=== PATIENT | male | born 1985 | race Caucasian/White ===

== ENCOUNTER 2021-07-03 21:18 | Emergency (ER) | payer SELFPAY ==
[2021-07-03 21:40] VITALS: BP 133/78; PULSE 84; RESP 18; TEMP 37.2; O2SAT 96
--- NOTE | 2021-07-03 21:57 | XRR_ITS ---
PROCEDURE INFORMATION: Exam: XR Chest Exam date and time: 07/03/2021 9:57 PM Age: 36 years old Clinical indication: Cough and fever and shortness of breath TECHNIQUE: Imaging protocol: XR of the chest. Views: 1 view. COMPARISON: No relevant prior studies available. FINDINGS: Lungs: Mild pulmonary vascular congestion interstitial edema. Subtle patchy ground-glass airspace opacities may reflect an infectious process. Pleural spaces: Unremarkable. No pleural effusion. No pneumothorax. Heart/Mediastinum: Cardiomegaly. Bones/joints: Unremarkable. XR/XR chest 1V portable [id number] IMPRESSION: 1. Subtle patchy ground-glass airspace opacities may reflect an infectious process. 2. Cardiomegaly. 3. Mild pulmonary vascular congestion interstitial edema.
[2021-07-03 23:32] LABS: SARS Covid-2 Antigen Negative (Negative)
--- NOTE | 2021-07-03 23:33 | ED_ITS ---
HPI - COVID General: Chief Complaint: COVID symptoms Stated Complaint: fever/fatigued/covid + Time Seen by Provider: 07/03/21 23:26 Source: patient Mode of arrival: ambulatory Limitations: no limitations Triage information: Has fever, cough or shortness of breath . Exposure to COVID + person last 14 days History of Present Illness: HPI Narrative: 36-year-old male who has had a cough congestion fever body aches for 7 days. His brother was recently diagnosed with Covid and is actually admitted to the hospital. He states that he went to get checked as he was pretreated Covid. He denies any worsening proving factors. Denies any vomiting or diarrhea. Patient is resting comfortably here and has a pulse ox of 96% on room air. COVID 19 common symptoms: positive fever(s), chills and non-productive cough; negative headache(s), throat pain, nausea, vomiting or diarrhea COVID 19 other sytmptoms: negative chest pain COVID Results: SARS-CoV-2 Antigen (Rapid) Negative (Negative) 07/03/21 23:07 07/03/21 Review of Systems Const: Reports: fever(s) and chills Eyes: Denies: blurry vision or eye discomfort ENMT: Denies: throat pain or dental pain Card: Denies: chest pain Resp: Reports: non-productive cough GI: Denies: abdominal pain, nausea, vomiting or diarrhea : Denies: dysuria Musc: Denies: neck pain or back pain Skin/Breast: Denies: rash Neuro: Denies: headache(s) Psych: Denies: depression Marco/Lymph: Denies: easy bruising All/Imm: Denies: urticaria Physical Exam Const: COMMON NORMALS: no acute distress, patient oriented x3 and healthy appearing HENMT: COMMON NORMALS: normocephalic and atraumatic HEAD & SCALP: normocephalic and atraumatic Eye: COMMON NORMALS: Equal, round and reactive pupils present and EOMs intact bilaterally PUPIL: Yes Equal, round and reactive pupils present Neck/C-Spine: COMMON NORMALS: full ROM and supple Chest: COMMONS NORMALS: normal inspection of the chest and normal palpation of entire chest wall Resp: COMMON NORMALS: normal respiratory effort, No retractions, No use of accessory muscles and clear to auscultation bilaterally AUSCULTATION: clear to auscultation bilaterally Cardio: COMMON NORMALS: regular rate, regular rhythm and No murmurs present (Cardio) RATE: regular rate RHYTHM: regular rhythm GI: COMMON NORMALS: Normal to inspection, nondistended, normoactive bowel sounds present, Soft to palpation, non-tender and no masses PALPATION: Yes Soft to palpation Extremity: COMMON NORMALS: normal to inspection and full ROM Neuro: COMMON NORMALS: patient oriented x3, moves all extremities and no focal motor deficits Psych: COMMON NORMALS: mental status grossly normal, Normal thought process present and cooperative THOUGHT PROCESS: Normal thought process present Skin: COMMON NORMALS: no rashes or lesions noted and no wounds GENERAL SKIN EXAM: no rashes or lesions noted Course Vital Signs: Vital signs: Vital Signs Temperature 99 F 07/03/21 21:40 Pulse Rate 87 07/03/21 23:35 Respiratory Rate 16 07/03/21 23:35 Blood Pressure 144/90 07/03/21 23:35 Pulse Oximetry 96 07/03/21 23:35 MDM - COVID MDM Narrative: Medical decision making narrative: Patient presents with likely Covid his rapid was negative but will send off a PCR she has had close contact and x-ray has the appearance of Covid. We will start him on a Medrol Dosepak and doxycycline. He is not hypoxic and is well-appearing here. He is to monitor his pulse ox at home and return to the ER if worsening. He understands agrees to plan. Lab Data: Labs: Lab Results 07/03/21 Range/Units 23:07 SARS-CoV-2 Ag (Rap id) Negative (Negative) Imaging Data: CXR: Radiologist's impression: [address] [place] [address] XRay Report Signed Patient: Ria Lomeli Unit #: [id number] : 1985 A cct#:[id number] Age/Sex: 36 / M ADM Date: 07/03/21 Loc: ER Room/Bed: Attending Dr: Ordering Provider/Ordering MD: Marv Sharpe MD Date of Service: 07/03/21 Procedure(s): XR chest 1V portable [id number] Accession Number(s): [id number] Report Number: [id number] PROCEDURE INFORMATION: Exam: XR Chest Exam date and time: 07/03/2021 9:57 PM Age: 36 years old Clinical indication: Cough and fever and shortness of breath TECHNIQUE: Imaging protocol: XR of the chest. Views: 1 view. COMPARISON: No relevant prior studies available. FINDINGS: Lungs: Mild pulmonary vascular congestion interstitial edema. Subtle patchy ground-glass airspace opacities may reflect an infectious process. Pleural spaces: Unremarkable. No pleural effusion. No pneumothorax. Heart/Mediastinum: Cardiomegaly. Bones/joints: Unremarkable. XR/XR chest 1V portable [id number] IMPRESSION: 1. Subtle patchy ground-glass airspace opacities may reflect an infectious process. 2. Cardiomegaly. 3. Mild pulmonary vascular congestion interstitial edema. Dictated By: Bryan Tam MD Signed By: Bryan Tam MD Signed Date/Time: 07/03/212313 DD/ 11 COVID Results: SARS-CoV-2 Antigen (Rapid) Negative (Negative) 07/03/21 23:07 07/03/21 Discharge Plan Discharge Patient Disposition: Home Clinical Impression: Suspected severe acute respiratory syndrome coronavirus 2 (SARS-CoV-2) infection, Suspected 2019-nCoV infection Condition: Stable Prescriptions: New doxycycline hyclate 100 mg tablet 100 mg PO BID 7 Days Qty: 14 RF: 0 Medrol (Tommie) 4 mg tablets,dose pack See Rx Instructions .ROUTE .COMPLEX Qty: 21 RF: 0 Discharge Orders: Discharge ED (Routine); Ordered 07/03/21 Ordered By: Marv Sharpe Discharge Diet: Advance as tolerated Discharge Activity: Resume usual activity Patient Instructions: Viral Syndrome (ED) Coding Level of Care Code ED Organic Chemistry Teacher for Rahul Mcgill
[2021-07-03 23:35] VITALS: BP 144/90; PULSE 87; RESP 16; O2SAT 96
[2021-07-03 23:43] VITALS: BP 140/52; PULSE 78; RESP 16; O2SAT 97
[2021-07-04 15:07] LABS: Coronavirus Test Green County Detected
== END 2021-07-03 23:40 | disposition home or self-care (01) ==
PROVIDERS: Emergency Provider Emergency Medicine
DX: U07.1 COVID-19 (principal)
CPT/HCPCS: 71045; 87426; 87635; 99281

== ENCOUNTER 2021-07-06 12:43 | Emergency (ER) | payer SELFPAY ==
[2021-07-06 12:51] VITALS: BP 155/93; PULSE 95; RESP 18; TEMP 37.3; O2SAT 93; BMI 40.4
--- NOTE | 2021-07-06 13:00 | XRR_ITS ---
PROCEDURE INFORMATION: Exam: XR Chest Exam date and time: 07/06/2021 1:00 PM Age: 36 years old Clinical indication: Cough and dyspnea TECHNIQUE: Imaging protocol: XR of the chest. Views: 1 view. COMPARISON: CR (CHEST, ) 07/03/2021 10:32 PM FINDINGS: Lungs: Patchy opacification in bilateral lungs progressed from prior study representing infiltrates. Pleural spaces: Unremarkable. No pleural effusion. No pneumothorax. Heart/Mediastinum: Unremarkable. No cardiomegaly. Bones/joints: Unremarkable. XR/XR chest 1V portable [id number] IMPRESSION: Patchy opacification in bilateral lungs progressed from prior study representing worsening infiltrates.
--- NOTE | 2021-07-06 13:02 | ECG_ITS ---
[facility] Test Date: 2021-07-06 Pat Name: Ria Lomeli Department: Room: Gender: Male Executive Relations Specialist: : 1985 Requested By: Marley Muñoz Order Number: [id number] Scottie MD: Marga Katz M.D. Measurements Intervals Rio Rate: 102 P: 29 WY: 158 QRS: 20 QRSD: 101 T: 16 QT: 321 QTc: 420 Interpretive Statements SINUS TACHYCARDIA ABNORMAL RHYTHM ECG No previous ECG available for comparison Electronically Signed On 07-08-2021 21:40:47 CDT by Marga Katz M.D. [email or web address]
--- NOTE | 2021-07-06 13:11 | ED_ITS ---
HPI - General Adult General: Chief complaint: Shortness of Breath/Dyspnea Stated complaint: COVID (+): COUGH, SOB Time Seen by Provider: 07/06/21 12:56 History of Present Illness: HPI narrative: CC: Shortness of breath, fever and generalized weakness HPI: This is a [36] yo patient w/ no known PMH for cough, worsening shortness of breath, nonbloody diarrhea, genrealized fatigue at home x 10days now worsening x 3 days. Patient tested positive for covid 10 days ago. Denies chest pain, N/V, diaphoresis, other GI or complaints. Denies any pleuritic chest pain, recent surgery/immobilization/travel, or hematemesis or hx of VTE in the past. At home, patient had a O2 sat 87-89% on RA on home pulse ox machine. Onset: 10 days ago Duration: ongoing for the last 10 days Location: home Severity: moderate Review of Systems Narrative: Constitutional: +subjective fever, +generalized weakness HEENT: No vision changes CV: No chest pain, no palpitations PULM: +cough, +dyspnea. GI: No abdominal pain, +N/-V/+D. +decreased PO intake : No dysuria MSKEL: No muscle pain SKIN: No new rashes, no lesions. NEURO: No headache, no focal weakness. HEME: No visible bruises PSYCH: Normal mood Physical Exam Narrative: EXAM NARRATIVE: Head: Atraumatic Eyes: PERRL, conjunctiva without injection ENT: Dry membrane moist NECK: Supple without lymphadenopathy LUNGS: +Coarse lung sounds, +rhonchi and crackles throughout the lung iglesias CV: RRR ABDOMEN: Soft, nontender in all quadrants, no guarding or rebound tenderness EXTREMITY: Normal ROM SKIN: No rash or erythema NEURO: Awake and alert. No focal motor deficits. PSYCH: Normal mood and affect. Course Vital Signs: Vital signs: Vital Signs Temperature 99.1 F 07/06/21 12:51 Pulse Rate 98 07/06/21 16:30 Respiratory Rate 18 07/06/21 16:30 Blood Pressure 162/114 07/06/21 16:30 Pulse Oximetry 88 L 07/06/21 14:12 MDM - General Adult MDM Narrative: Medical decision making narrative: [36]yo patient w/ no PMH presenting for respiratory distress. On arrival patient is satting at 89% on RA, +tachypnea and coarse breath sounds in lung iglesias. Based on history, exam and findings, presentation most consistent with moderate/severe covid PNA requiring increasing oxygen supprot. Low suspicion for PNA, ACS, tamponade, CHF, aortic dissection. EKG: No signs of STEMI and no evidence of Brugada?s sign, delta wave, epsilon wave, significantly prolonged QTc, or malignant arrhythmia as source of exacerbation. Workup today: ECG, CBC, BMP, CXR, covid antigen and PCR, COVID labs Intervention: Tylenol 1gram, PO challenge, serial reassessment, oxygen, remdesivir, decadron On reassessment at 2:26 PM, patient satting at greater than 95% on 2 L nasal cannula. I have offered patient admission however, patient elects to go home. Patient request for home oxygen and serial reevaluation. Patient tells me that he has a pulse ox at home with oxygen he should be able to move around. Discussed the risk of leaving the hospital today which include worsening Covid symptoms and possible respiratory distress leading to . Patient is aware of these symptoms and reassures me that he would come back to the emergency room should his symptoms worsen. He also informs me that he uses pulse ox daily. Have arranged home oxygen for patient. Patient agrees with the plan. Disposition: Discharge. Patient given strict return precaution for any worsening symptoms including fever/chills, worsening shortness of breath, or any new or concerning complaints. Lab Data: Labs: Lab Results 07/06/21 07/06/21 07/06/21 Range/Units 13:50 14:05 14:05 WBC (4.0-10.0) 10^3/ uL RBC (4.1-5.3) 10^6/u L Hgb (11.7-16.6) g/dL Hct (42.0-52.0) % MCV (80-94) fl MCH (28.0-34.0) pg MCHC (30.0-36.0) g/dL RDW (12.1-15.1) % Plt Count (130-400) 10^3/c mm MPV (7.4-10.4) fL Neut % (Auto) % Lymph % (Auto) % Becker % (Auto) % Eos % (Auto) % Baso % (Auto) % Neut # (Auto) (1.8-7.7) 10^3/u L Lymph # (Auto) (0.8-4.8) 10^3/u L Becker # (Auto) (0.2-0.9) 10^3/u L Eos # (Auto) (0.0-0.8) 10^3/u L Baso # (Auto) (0.0-0.1) 10^3/u L Nucleated RBC % (a uto) % Nucleated RBCs # /100WBC PT 13.70 (12.1-14.9) SECO NDS INR 1.02 (0.8-1.2) APTT 30.7 (23.9-36.7) SECO NDS Fibrinogen 595 H (174-498) mg/dL D-Dimer 0.34 (0-0.59) ug/mIFE U Sodium 141 (136-145) mmol/L Potassium 4.0 (3.5-5.1) mmol/L Chloride 100 (98-107) mmol/L Carbon Dioxide 28 (22-29) mmol/L Anion Gap 17.0 (5-19) BUN 6 (6-20) mg/dL Creatinine 0.7 (0.7-1.2) mg/dL GFR Calculation 126.9 (90-130) mL/min Glucose 116 H (65-115) mg/dL Calculated Osmolal ity 291 (285-295) mOsm/k g Lactic Acid (0.5-2.2) mmol/L Calcium 8.5 (8.5-10.5) mg/dL Magnesium 2.2 (1.7-2.3) mg/dL Total Bilirubin 0.4 (0.15-1.2) mg/dL AST 46 H (0-40) U/L ALT 39 (0-41) U/L Alkaline Phosphata se 51 (40-130) IU/L Lactate Dehydrogen ase 613 H (135-225) U/L Troponin T Gen 5 n g/L (0-15) ng/L C-Reactive Protein 101.2 H (0.0-4.9) mg/L Total Protein 7.4 (6.6-8.7) g/dL Albumin 4.1 (3.5-5.2) g/dL Globulin 3.3 (1.3-4.6) g/dL Procalcitonin 0.10 (0-0.5) ng/mL SARS-CoV-2 Ag (Rap id) Negative (Negative) 07/06/21 07/06/21 07/06/21 Range/Units 14:05 14:05 14:05 WBC 10.7 H (4.0-10.0) 10^3/ uL RBC 5.52 H (4.1-5.3) 10^6/u L Hgb 16.0 (11.7-16.6) g/dL Hct 48.1 (42.0-52.0) % MCV 87.1 (80-94) fl MCH 29.0 (28.0-34.0) pg MCHC 33.3 (30.0-36.0) g/dL RDW 12.8 (12.1-15.1) % Plt Count 338 (130-400) 10^3/c mm MPV 9.7 (7.4-10.4) fL Neut % (Auto) 84.5 % Lymph % (Auto) 11.2 % Becker % (Auto) 3.3 % Eos % (Auto) 0.0 % Baso % (Auto) 0.2 % Neut # (Auto) 9.02 H (1.8-7.7) 10^3/u L Lymph # (Auto) 1.2 (0.8-4.8) 10^3/u L Becker # (Auto) 0.4 (0.2-0.9) 10^3/u L Eos # (Auto) 0.0 (0.0-0.8) 10^3/u L Baso # (Auto) 0.0 (0.0-0.1) 10^3/u L Nucleated RBC % (a uto) 0 % Nucleated RBCs # 0.0 /100WBC PT (12.1-14.9) SECO NDS INR (0.8-1.2) APTT (23.9-36.7) SECO NDS Fibrinogen (174-498) mg/dL D-Dimer (0-0.59) ug/mIFE U Sodium (136-145) mmol/L Potassium (3.5-5.1) mmol/L Chloride (98-107) mmol/L Carbon Dioxide (22-29) mmol/L Anion Gap (5-19) BUN (6-20) mg/dL Creatinine (0.7-1.2) mg/dL GFR Calculation (90-130) mL/min Glucose (65-115) mg/dL Calculated Osmolal ity (285-295) mOsm/k g Lactic Acid 2.0 (0.5-2.2) mmol/L Calcium (8.5-10.5) mg/dL Magnesium (1.7-2.3) mg/dL Total Bilirubin (0.15-1.2) mg/dL AST (0-40) U/L ALT (0-41) U/L Alkaline Phosphata se (40-130) IU/L Lactate Dehydrogen ase (135-225) U/L Troponin T Gen 5 n g/L 7 (0-15) ng/L C-Reactive Protein (0.0-4.9) mg/L Total Protein (6.6-8.7) g/dL Albumin (3.5-5.2) g/dL Globulin (1.3-4.6) g/dL Procalcitonin (0-0.5) ng/mL SARS-CoV-2 Ag (Rap id) (Negative) Imaging Data^: Other Imaging: Radiologist's impression: [address], [place] [address]ETnd ReportSigned Patient: Jose Lomeli #: [id number]: 1985Acct#:[id number]/Sex: 36 / MADM Date: 07/03/21Loc: [facility]/Bed:Attending Dr: Ordering Provider/Ordering MD: Marv Sharpe MD Date of Service: 07/03/21 Procedure(s): XR chest 1V portable [id number] Accession Number(s): [id number] Report Number: [id number] PROCEDURE INFORMATION: Exam: XR Chest Exam date and time: 07/03/2021 9:57 PM Age: 36 years old Clinical indication: Cough and fever and shortness of breath TECHNIQUE: Imaging protocol: XR of the chest. Views: 1 view. COMPARISON: No relevant prior studies available. FINDINGS: Lungs: Mild pulmonary vascular congestion interstitial edema. Subtle patchy ground-glass airspace opacities may reflect an infectious process. Pleural spaces: Unremarkable. No pleural effusion. No pneumothorax. Heart/Mediastinum: Cardiomegaly. Bones/joints: Unremarkable. XR/XR chest 1V portable [id number] IMPRESSION: 1. Subtle patchy ground-glass airspace opacities may reflect an infectious process. 2. Cardiomegaly. 3. Mild pulmonary vascular congestion interstitial edema. Dictated By:Bryan Tam MDSigned By:Bryan Tam MDSigned Date/Time:07/03/214DD/ 11 Discharge Plan Discharge Patient Disposition: Home Clinical Impression: Suspected 2019-nCoV infection, Hypoxemia, Pneumonia due to 2019-nCoV Condition: Stable Prescriptions: New Zofran 4 mg tablet 4 mg PO Q8H PRN (Reason: nausea and vomiting) 4 Days Qty: 12 RF: 0 No Action doxycycline hyclate 100 mg tablet 100 mg PO BID 7 Days Qty: 14 RF: 0 Medrol (Tommie) 4 mg tablets,dose pack See Rx Instructions .ROUTE .COMPLEX Qty: 21 RF: 0 Discharge Orders: Discharge ED (Routine); Ordered 07/06/21 Ordered By: Marley Muñoz Other Ambulatory Orders: DME: Oxygen (Order) Location: None Selected Ordered By: Marley Muñoz Discharge Diet: Advance as tolerated Discharge Activity: Resume usual activity Patient Instructions: Opioid Safety Coding Level of Care Code ED Import/Export Administrator for Rahul Mcgill
[2021-07-06 14:12] VITALS: O2SAT 86; O2SAT 88; O2SAT 93
[2021-07-06 14:43] LABS: INR 1.02 (0.8-1.2)
[2021-07-06 14:44] LABS: Fibrinogen 595 mg/dL (174-498); Partial Thromboplastin Time 30.7 SECONDS (23.9-36.7)
[2021-07-06 14:47] LABS: D Dimer 0.34 ug/mIFEU (0-0.59)
[2021-07-06 14:49] LABS: Basophils % 0.2 %; Hematocrit 48.1 % (42.0-52.0); Lymphocytes # 1.2 10^3/uL (0.8-4.8); Lymphocytes % 11.2 %; Mean Corpuscular HGB Conc 33.3 g/dL (30.0-36.0); Mean Corpuscular Volume 87.1 fl (80-94); Mean Platelet Volume 9.7 fL (7.4-10.4); Monocytes # 0.4 10^3/uL (0.2-0.9); Monocytes % 3.3 %; Neutrophils # 9.02 10^3/uL (1.8-7.7); Neutrophils % 84.5 %; Nucleated Red Blood Cells % 0 %; Platelet Count 338 10^3/cmm (130-400); Red Blood Count 5.52 10^6/uL (4.1-5.3); Red Cell Distribution Width 12.8 % (12.1-15.1); White Blood Count 10.7 10^3/uL (4.0-10.0)
[2021-07-06] MEDS: dexamethasone 4 mg/mL INJ 6 MG IVP (14:51)
[2021-07-06] MEDS: remdesivir 200 MG in sodium chloride 0.9% (100 ml) 100 ML 100 MG IV (14:52)
[2021-07-06 15:59] LABS: Alanine Aminotransferase 39 U/L (0-41); Albumin Level 4.1 g/dL (3.5-5.2); Alkaline Phosphatase 51 IU/L (40-130); Aspartate Amino Transferase 46 U/L (0-40); Blood Urea Nitrogen 6 mg/dL (6-20); C Reactive Protein 101.2 mg/L (0.0-4.9); Calcium 8.5 mg/dL (8.5-10.5); Carbon Dioxide 28 mmol/L (22-29); Chloride 100 mmol/L (98-107); Globulin 3.3 g/dL (1.3-4.6); Glomerular Filtration Rate 126.9 mL/min (90-130); Glucose 116 mg/dL (65-115); Lactate Dehydrogenase 613 U/L (135-225); Magnesium 2.2 mg/dL (1.7-2.3); Osmolality Calculated 291 mOsm/kg (285-295); Sodium 141 mmol/L (136-145); Total Bilirubin 0.4 mg/dL (0.15-1.2); Total Protein 7.4 g/dL (6.6-8.7); Troponin T (5th) Once 7 ng/L (0-15)
[2021-07-06 16:21] LABS: SARS Covid-2 Antigen Negative (Negative)
[2021-07-06 16:30] VITALS: BP 162/114; PULSE 98; RESP 18
== END 2021-07-06 16:31 | disposition home or self-care (01) ==
PROVIDERS: Emergency Provider Emergency Medicine
DX: U07.1 COVID-19 (principal); J12.82 Pneumonia due to coronavirus disease 2019; R09.02 Hypoxemia
CPT/HCPCS: 71045; 80053; 83605; 83615; 83735; 84145; 84484; 85025; 85378; 85384; 85610; 85730; 86140; 87426; 93005; 96365; 96375; 99283; J1100